=== PATIENT | female | born 1960 | race Caucasian/White ===

== ENCOUNTER 2021-11-18 15:56 | Emergency (ER) | payer BC ==
[~2021-11-18] VITALS: Ht 165.1 cm; Wt 77.1 kg
[2021-11-18 16:13] VITALS: BP_SYST 158
--- NOTE | 2021-11-18 16:43 | NUR ---
Patient triaged and placed in ER waiting room awaiting available bed in main ED. MD aware of MSE needs.
--- NOTE | 2021-11-18 17:00 | NUR ---
MD BEEBE TO SEE PATIENT IN TRIAGE ROOM.
[2021-11-18 17:09] LABS: BILIRUBIN,URINE NEGATIVE (NEGATIVE); BLOOD, URINE 3+ (NEGATIVE); CLARITY/URINE CLOUDY (CLEAR); COLOR,URINE YELLOW (YELLOW); GLUCOSE,URINE NEGATIVE (NEGATIVE); KETONES,URINE NEGATIVE (NEGATIVE); LEUKOCYTE ESTERASE ,URINE 2+ (NEGATIVE); NITRITE, URINE POSITIVE (NEGATIVE); PROTEIN URINE 2+ (NEGATIVE); UROBILINOGEN,URINE 0.2 (0.2-1.0)
[2021-11-18 17:22] LABS: BACTERIA,URINE MODERATE /HPF (None Seen); MUCUS,URINE None Seen /LPF (None Seen); RBC,URINE >100 /HPF (0-3); WBC,URINE >100 /HPF (0-3); YEAST,URINE Few /HPF (None Seen)
--- NOTE | 2021-11-18 18:04 | NUR ---
Placed in room 3 . Placed on online marketing analyst, blood pressure machine and pulse oximeter. To gown for exam. Side rails up. Report given to EMILIANO SMITH.
--- NOTE | 2021-11-18 18:10 | NUR ---
INITIAL CONTACT MADE W/PATIENT. C/O HEMATURIA, INCONTENENCE, W/ DYSURIA X 2 DAYS. DENIES ANY FLANK PAIN. DENIES ANY N/V/D. DENIES ANY FEVERS.
[2021-11-18] MEDS ORDERED: NITR-85 PO (18:24)
[2021-11-18 18:30] VITALS: BP_SYST 158
[2021-11-18] MEDS ORDERED: NITROFURANTOIN MONOHYD/M-CRYST 100 MG CAPSULE (MacroBID) PO ONE (18:30)
--- NOTE | 2021-11-18 18:31 | NUR ---
Patient given written and verbal discharge instructions and verbalizes understanding. DR. ABIEL ALEJANDRE MD discussed with patient the results and treatment provided. Patient in stable condition. ID arm band removed. Patient educated on pain management and to follow up with PMD. Pain Scale 0/10. Opportunity for questions provided and answered. Medication side effect fact sheet provided.
== END 2021-11-18 18:30 | disposition home or self-care (01) ==
LOC: SED 15:56
DX: N39.0 Urinary tract infection, site not specified (principal)
CPT/HCPCS: 81000; 87086; 99283